=== PATIENT | female | born 1995 | race Caucasian/White ===

== ENCOUNTER 2017-03-22 23:08 | Emergency (ER) | payer OTHER ==
[2017-03-23 00:50] VITALS: BP 111/70; PULSE 82; TEMP 98; BMI 21.2
--- NOTE | 2017-03-23 01:22 | PDOC ---
History of Present Illness - General History Source: Patient Exam Limitations: No Limitations - History of Present Illness Initial Comments: 03/23/17 01:28 The patient is a 21-year-old female, with no significant past medical history, who presents to the ED with pelvic pain. Pt was diagnosed with bacterial vaginosis and was placed on flagyl for 10 days, last dose tuesday. She is now complaining of lower abd pain. She denies any vaginal bleeding, nausea, or vomiting. Pt now has hives on her forearms, lower neck, and upper chest region. She is diffusely itchy and states that the rash appeared yesterday. Denies bleeding or discharge. She denies any frequency, urgency, or dysuria. <Rosalinda Mcghee - Last Filed: 03/23/17 01:28> - General History Source: Patient <Lito Melo - Last Filed: 03/23/17 02:13> - General Chief Complaint: Hives Stated Complaint: PELVIC PAIN Time Seen by Provider: 03/23/17 01:18 Past History <Rosalinda Mcghee - Last Filed: 03/23/17 01:28> - Psycho/Social/Smoking Cessation Hx Suicidal Ideation: No Smoking History: Never smoked Have you smoked in the past 12 months: No Information on smoking cessation initiated: No Hx Alcohol Use: No Drug/Substance Use Hx: No <Lito Melo - Last Filed: 03/23/17 02:13> - Past Medical History Allergies/Adverse Reactions: Allergies Allergy/AdvReac Type Severity Reaction Status Date / Time No Known Allergies Allergy Verified 03/23/17 00:48 Home Medications: Ambulatory Orders Ibuprofen [Motrin] 600 mg PO TID #30 tablet 03/23/17 Review of Systems - Review of Systems Able to Perform ROS?: Yes Comments:: 03/23/17 01:29 CONSTITUTIONAL: Absent: fever, no chills, no fatigue EYES: Absent: visual changes ENT: Absent: ear pain, no sore throat CARDIOVASCULAR: Absent: chest pain, no palpitations RESPIRATORY: Absent: cough, no SOB GI: Present: pelvic pain Absent: no nausea, no vomiting, no constipation, no diarrhea GENITOURINARY: Absent: dysuria, no frequency, no hematuria MUSKULOSKELETAL: Absent: back pain, no arthralgia, no myalgia SKIN: Present: rash, itching Absent: pallor NEURO: Absent: headache <TazRosalinda - Last Filed: 03/23/17 01:28> *Physical Exam - Vital Signs Last Vital Signs Temp Pulse Resp BP Pulse Ox 98.0 F 82 16 111/70 99 03/23/17 00:48 03/23/17 00:48 03/23/17 00:48 03/23/17 00:48 03/23/17 00:48 - Physical Exam Comments: 03/23/17 01:30 GENERAL: Well-appearing, well-nourished. No apparent distress. HEENT: Normocephalic, atraumatic. PERRL, EOM intact. CARDIOVASCULAR: Normal S1, S2. Regular rate and rhythm. PULMONARY: Clear to auscultation bilaterally. ABDOMEN: Soft, non-distended, non-tender. EXTREMITIES: Normal ROM in all four extremities. No gross deformities. SKIN: Warm, dry. +Diffuse urticarial lesions on her forearms, lower neck, upper chest region. NEUROLOGICAL: No focal neurological deficits. <Rosalinda Mcghee - Last Filed: 03/23/17 01:28> - Vital Signs Last Vital Signs Temp Pulse Resp BP Pulse Ox 98.0 F 82 16 111/70 99 03/23/17 00:48 03/23/17 00:48 03/23/17 00:48 03/23/17 00:48 03/23/17 00:48 <Lito Melo - Last Filed: 03/23/17 02:13> Medical Decision Making - Medical Decision Making 03/23/17 02:12 Dr. Melo: The scribe's documentation has been prepared under my direction and personally reviewed by me in its entirery. I confirm that the note above accurately reflects all work, treatment, procedures, and medical decision making performed by me. <Lito Melo - Last Filed: 03/23/17 02:13> *DC/Admit/Observation/Transfer - Attestations Scribe Attestion: 03/23/17 01:30 Documentation prepared by Rosalinda Mcghee, acting as medical review coordinator for Lito Melo MD. <Rosalinda Mcghee - Last Filed: 03/23/17 01:28> - Discharge Dispostion Admit: No <Lito Melo Last Filed: 03/23/17 02:13> Diagnosis at time of Disposition: Pelvic pain - Discharge Dispostion Disposition: HOME Condition at time of disposition: Stable - Prescriptions Prescriptions: Ibuprofen [Motrin] 600 mg PO TID #30 tablet - Referrals Referrals: Tarun Rm MD, [Primary Care Provider] - Meet Hernandez MD [Staff Physician] - - Patient Instructions Printed Discharge Instructions: DI for Pelvic Pain - Post Discharge Activity Work/School Note: Back to Work
[2017-03-23 01:33] LABS: URINE APPEARANCE CLEAR; URINE BILIRUBIN NEGATIVE (NEGATIVE); URINE BLOOD NEGATIVE (NEGATIVE); URINE COLOR YELLOW; URINE GLUCOSE (UA) NEGATIVE (NEGATIVE); URINE KETONE TRACE (NEGATIVE); URINE LEUK ESTERASE TRACE (NEGATIVE); URINE NITRITE NEGATIVE (NEGATIVE); URINE PROTEIN NEGATIVE (NEGATIVE); URINE UROBILINOGEN NEGATIVE mg/dL (0.2-1.0)
[2017-03-23 01:36] LABS: URINE BACTERIA RARE /hpf (NONE SEEN); URINE MUCUS MODERATE; URINE RBC 3 /hpf (0-3); URINE WBC <1 /hpf (3-5)
== END 2017-03-23 02:40 | disposition home or self-care (01) ==
LOC: JER 23:08
DX: R10.2 Pelvic and perineal pain (principal); L50.9 Urticaria, unspecified
CPT/HCPCS: 76830-TC; 81003; 81015; 84703; 99281-25